=== PATIENT | female | born 1990 | race Caucasian/White ===

== ENCOUNTER 2016-12-14 16:32 | Emergency (ER) | payer OTHER ==
[2016-12-14 16:45] VITALS: BP 103/39; PULSE 95; RESP 18; TEMP 98.2; O2SAT 100
--- NOTE | 2016-12-14 17:17 | C.PDOC ---
History Of Present Illness 26 yr old female presents to the ER for evaluation of rash that started few days ago. Patient states she was seen at urgent care center and was prescribed bactroban cream but reports no improvement of symptoms. Denies fever, chills, mouth swelling, throat swelling, nausea, vomiting, weakness or numbness. Time Seen by Provider: 12/14/16 17:00 Chief Complaint (Nursing): Abnormal Skin Integrity History Per: Patient History/Exam Limitations: no limitations Onset/Duration Of Symptoms: Days Past Medical History Reviewed: Historical Data, Nursing Documentation, Vital Signs Vital Signs: Last Vital Signs Temp 98.2 F 12/14/16 16:42 Pulse 95 H 12/14/16 16:42 Resp 18 12/14/16 16:42 BP 103/39 L 12/14/16 16:42 Pulse Ox 100 12/14/16 18:05 Family History: States: No Known Family Hx - Social History Hx Alcohol Use: Yes Hx Substance Use: No - Immunization History Hx Tetanus Toxoid Vaccination: No Hx Influenza Vaccination: No Hx Pneumococcal Vaccination: No Review Of Systems Except As Marked, All Systems Reviewed And Found Negative. Constitutional: Negative for: Fever, Chills ENT: Negative for: Mouth Swelling, Throat Swelling Gastrointestinal: Negative for: Nausea, Vomiting Skin: Positive for: Rash (Left side of lips. ) Neurological: Negative for: Weakness, Numbness Physical Exam - Physical Exam Appears: Non-toxic, No Acute Distress Skin: Warm, Dry, Rash (Mild maculopapular rash, worse to the lateral left side of lips and mildly vesicular) Head: Atraumatic, Normacephalic Eye(s): bilateral: Normal Inspection, PERRL, EOMI Oral Mucosa: Moist Throat: Normal, No Erythema, No Exudate, No Drooling Chest: Symmetrical, No Tenderness Cardiovascular: Rhythm Regular, No Murmur Respiratory: Normal Breath Sounds, No Rales, No Rhonchi, No Stridor, No Wheezing Extremity: Normal ROM, No Swelling Neurological/Psych: Oriented x3, Normal Speech, Normal Motor ED Course And Treatment O2 Sat by Pulse Oximetry: 100 (RA) Pulse Ox Interpretation: Normal Medical Decision Making Medical Decision Making: suspect cold sore vs impetigo PLAN: * Keflex PO pt advised outpt f/u with pmd, return precautions advised. Disposition - Disposition Referrals: [facility] [Outside] [facility] [Outside] [facility] [Outside] Disposition: HOME/ ROUTINE Disposition Time: 06:00 Condition: GOOD Additional Instructions: please follow up with your doctor. return to er with worsening symptoms or concerns. Prescriptions: Cephalexin [Keflex] 500 mg PO QID #28 capsule Instructions: Impetigo (ED), Oral Herpes Simplex Virus Infections (ED) Forms: [email or web address] ([place]ayan) - Clinical Impression Clinical Impression: Rash - Scribe Statement The provider has reviewed the documentation as recorded by the Kei Ponce Provider Attestation: All medical record entries made by the Kei were at my direction and personally dictated by me. I have reviewed the chart and agree that the record accurately reflects my personal performance of the history, physical exam, medical decision making, and the department course for this patient. I have also personally directed, reviewed, and agree with the discharge instructions and disposition.
--- NOTE | 2016-12-14 17:17 | C.PDOC ---
Time Seen by Provider: 12/14/16 17:00 Chief Complaint (Nursing): Abnormal Skin Integrity Past Medical History Vital Signs: Last Vital Signs Temp 98.2 F 12/14/16 16:42 Pulse 95 H 12/14/16 16:42 Resp 18 12/14/16 16:42 BP 103/39 L 12/14/16 16:42 Pulse Ox 100 12/14/16 16:42 Family History: States: Unknown Family Hx - Social History Hx Alcohol Use: Yes Hx Substance Use: No - Immunization History Hx Tetanus Toxoid Vaccination: No Hx Influenza Vaccination: No Hx Pneumococcal Vaccination: No ED Course And Treatment O2 Sat by Pulse Oximetry: 100 Disposition - Disposition Forms: [employer] (Thai)
== END 2016-12-14 17:26 | disposition home or self-care (01) ==
LOC: C.ER 16:32
DX: R21 Rash and other nonspecific skin eruption (principal)